=== PATIENT | male | born 1970 | race Caucasian/White ===

== ENCOUNTER 2018-08-06 10:01 | Inpatient (IN) | payer BC ==
[2018-08-06 10:32] VITALS: BMI 30.4
--- NOTE | 2018-08-06 12:03 | HP ---
COWS - Scale Resting Pulse: 1= [place] 81-100 Sweatin=Flushed/Facial Moisture Restless Observation: 0= Sits Still Pupil Size: 0= Normal to Room Light Bone or Joint Aches: 2= Severe Diffuse Aches Runny Nose/ Eye Tearin= Runny Nose/Eyes GI Upset > 30mins: 1= Stomach Cramp Tremor Observation: 2= Slight Tremor Visible Yawning Observation: 1= 1-2x During Session Anxiety or Irritability: 1=Feels Anxious/Irritable Goose Flesh Skin: 0=Smooth Skin COWS Score: 12 CIWA Score - CIWA Score Nausea/Vomitin-Mild Nausea/No Vomiting Muscle Tremors: 2 Anxiety: 2 Agitation: 0-Normal Activity Paroxysmal Sweats: 2 Orientation: 2-Disoriented Date<2 days Tacttile Disturbances: 0-None Auditory Disturbances: 0-None Visual Disturbances: 0-None Headache: 3-Moderate CIWA-Ar Total Score: 12 Admission [facility] - HPI Chief Complaint: ETOH/HEROIN WITHDRAWAL SYMPTOMS. Allergies/Adverse Reactions: Allergies Allergy/AdvReac Type Severity Reaction Status Date / Time No Known Allergies Allergy Verified 08/06/18 10:42 History of Present Illness: PATIENT PRESENTS WITH ETOH/HEROIN WITHDRAWAL SYMPTOMS. PATIENT STARTED DRINKING AT AGE 15 AND DRINKS 40 OUNCES OF BEER 6 TIMES A DAY. LAST DRINK THIS MORNING. STARTED SNIFFING COCAINE AT AGE 22 AND HEROIN AT AGE 26. LONGEST PERIOD OF SOBRIETY 7 YEARS. LAST TIME HE USED HEROIN AND COCAINE WAS LAST NIGHT. SNIFFS UP TO 300 DOLLARS DAILY. DENIES HX OF SEIZURES AND OVERDOSE. FIRST TIME ADMISSION TO [facility]. PMH INCLUDES DEPRESSION, HYPOTHYROIDSIM AND BIPOLAR DISORDER. DENIES SI/HI AND SUICIDE ATTEMPTS. Exam Limitations: No Limitations - Ebola screening Have you traveled outside of the country in the last 21 days: No Have you had contact with anyone from an Ebola affected area: No Have you been sick,other than usual withdrawal symptoms: No Do you have a fever: No - Review of Systems Constitutional: Chills, Night Sweats, Changes in sleep, Unintentional Wgt. Loss EENT: reports: Tearing, Nose Congestion Respiratory: reports: No Symptoms reported Cardiac: reports: No Symptoms Reported GI: reports: Nausea, Poor Fluid Intake, Abdominal cramping : reports: No Symptoms Reported Musculoskeletal: reports: Back Pain, Joint Pain, Muscle Pain Neuro: reports: Headache, Tremors Endocrine: reports: Unexplained Weight Loss Hematology: reports: No Symptoms Reported Psychiatric: reports: Anxious, Depressed Patient History - Patient Medical History Hx Anemia: No Hx Asthma: No Hx Chronic Obstructive Pulmonary Disease (COPD): No Hx Cancer: No Hx Cardiac Disorders: No Hx Congestive Heart Failure: No Hx Hypertension: No Hx Hypercholesterolemia: No Hx Pacemaker: No HX Cerebrovascular Accident: No Hx Seizures: No Hx Dementia: No Hx Diabetes: No Hx Gastrointestinal Disorders: No Hx Liver Disease: No Hx Genitourinary Disorders: No Hx Sexually Transmitted Disorders: No Hx Renal Disease (ESRD): No Hx Thyroid Disease: Yes Hx Human Immunodeficiency Virus (HIV): No Hx Hepatitis C: No Hx Depression: Yes Hx Suicide Attempt: No Hx Bipolar Disorder: No Hx Schizophrenia: No - Patient Surgical History Past Surgical History: No Hx Neurologic Surgery: No Hx Cataract Extraction: No Hx Cardiac Surgery: No Hx Lung Surgery: No Hx Breast Surgery: No Hx Breast Biopsy: No Hx Abdominal Surgery: No Hx Appendectomy: No Hx Cholecystectomy: No Hx Genitourinary Surgery: No Hx Orthopedic Surgery: No Anesthesia Reaction: No - PPD History Previous Implant?: Yes Documented Results: Negative w/o proof Implanted On Prior [facility] Admission?: No PPD to be Administered?: Yes - Smoking Cessation Smoking history: Never smoked Have you smoked in the past 12 months: No Hx Chewing Tobacco Use: No Initiated information on smoking cessation: No - Substance & Tx. History Hx Alcohol Use: Yes Hx Substance Use: Yes Substance Use Type: Alcohol, Cocaine, Heroin Hx Substance Use Treatment: No - Substances Abused Heroin Route: Inhalation Frequency: Daily Amount used: 2 bags Age of first use: 26 Date of Last Use: 08/05/18 Crack Route: Smoking Frequency: Daily Amount used: $300 Age of first use: 31 Date of Last Use: 08/05/18 Alcohol-beer Route: Oral Frequency: Daily Amount used: 6 (40 oz.0 Age of first use: 15 Date of Last Use: 08/06/18 Family Disease History - Family Disease History Family Disease History: Other: Father (SUBSTANCE ABUSE) Admission Physical Exam [facility] - Vital Signs Vital Signs: Vital Signs - 24 hr 08/06/18 10:29 Temperature 97.1 F L Pulse Rate 83 Respiratory 18 Rate Blood Pressure 121/82 - Physical General Appearance: Yes: Appropriately Dressed, Disheveled, Intoxicated, Tremorous, Sweating, Anxious HEENTM: Yes: EOMI, Hearing grossly Normal, Normocephalic, Normal Voice, JULIA, Pharynx Normal Respiratory: Yes: Chest Non-Tender, Lungs Clear, Normal Breath Sounds, No Respiratory Distress, No Accessory Muscle Use Neck: Yes: No masses,lesions,Nodules, Supple Breast: Yes: Breast Exam Deferred Cardiology: Yes: Regular Rhythm, Regular Rate, S1, S2 Abdominal: Yes: Normal Bowel Sounds, Non Tender, Soft Genitourinary: Yes: Within Normal Limits Back: Yes: Muscle Spasm Musculoskeletal: Yes: full range of Motion, Gait Steady, Back pain, Muscle Pain Extremities: Yes: Normal Inspection, Normal Range of Motion, Non-Tender, Tremors Neurological: Yes: over hauler helper II-XII NML intact, Fully Oriented, Alert, Motor Strength 5/5, Normal Response, Depressed Affect Integumentary: Yes: Normal Color, Warm, Moist Lymphatic: Yes: Within Normal Limits - Diagnostic (1) Opioid dependence with withdrawal Current Visit: Yes Status: Acute (2) Alcohol dependence with uncomplicated withdrawal Current Visit: Yes Status: Acute (3) Crack cocaine use Current Visit: Yes Status: Chronic (4) Hypothyroidism Current Visit: Yes Status: Chronic Qualifiers: Hypothyroidism type: unspecified Qualified Code(s): E03.9 - Hypothyroidism , unspecified Cleared for Admission [facility] - Detox or Rehab [facility] Level of Care: Medically Managed Detox Regimen/Protocol: Methadone/Librium [facility] Breath Alcohol Content Breath Alcohol Content: 0.061 Urine Drug Screen - Results Drug Screen Negative: No Urine Drug Screen Results: MORRIS-Cocaine, OPI-Opiates
[2018-08-06] MEDS ORDERED: MAGNESIUM CITRATE 300 ML BOTTLE PO PRN (12:10)
[2018-08-06] MEDS ORDERED: guaiFENesin/D-METHORPHAN HB 10 ML UNIT-DOSE CUPS PO PRN (12:10)
[2018-08-06] MEDS ORDERED: P-EPHED 60MG/TRIPROLIDI 2.5MG TABLET PO PRN (12:10)
[2018-08-06] MEDS ORDERED: MENTHOL/PHENOL 1 EACH UD MM PRN (12:10)
[2018-08-06] MEDS ORDERED: MAG HYDROX/AL HYDROX/SIMETH 30 ML UNIT-DOSE CUP PO PRN (12:10)
[2018-08-06] MEDS ORDERED: MAGNESIUM HYDROX 2400MG/30ML ORAL SUSPENSION 30 ML CUP PO PRN (12:10)
[2018-08-06] MEDS ORDERED: ACETAMINOPHEN 325 MG TABLET (FP) PO PRN (12:10)
[2018-08-06] MEDS ORDERED: LOPERAMIDE HCL 2 MG CAPSULE PO PRN (12:10)
[2018-08-06] MEDS ORDERED: IBUPROFEN 400 MG TABLET (FP) PO PRN (12:10)
[2018-08-06] MEDS ORDERED: METHADONE HCL 10 MG TABLET (FOR DETOX USE ONLY) PO ONE ×2 (12:50→23:00)
[2018-08-06] MEDS: chlordiazePOXIDE HCL 25 MG CAPSULE PO PRN (14:34)
[2018-08-06 16:17] LABS: HEMATOCRIT 43.9 % (35.4-49); HEMOGLOBIN 14.5 GM/dL (11.7-16.9); MCH 28.8 pg (25.7-33.7); MEAN CELL VOLUME 87.3 fl (80-96); MEAN PLT VOLUME 8.9 fl (7.5-11.1); PLATELET COUNT 282 K/MM3 (134-434); RBC 5.03 M/mm3 (4.00-5.60); RDW 14.1 % (11.9-15.9); WHITE BLOOD COUNT 9.6 K/mm3 (4.0-10.0)
[2018-08-06 16:39] LABS: CHLORIDE 101 mmol/L (98-107); POTASSIUM 3.8 mmol/L (3.5-5.1); SODIUM 139 mmol/L (136-145)
--- NOTE | 2018-08-06 16:45 | EKG ---
Test Reason : Blood Pressure : / mmHG Vent. Rate : 063 BPM Atrial Rate : 063 BPM P-R Int : 138 ms QRS Dur : 090 ms QT Int : 426 ms P-R-T Axes : 073 068 060 degrees QTc Int : 435 ms NORMAL SINUS RHYTHM WITH SINUS ARRHYTHMIA NORMAL ECG NO PREVIOUS ECGS AVAILABLE Confirmed by Dominik Townsend ([id number]) on 08/06/2018 4:44:41 PM Referred By: Confirmed By:Dominik Townsend
[2018-08-06 17:03] LABS: ALBUMIN 3.7 g/dl (3.4-5.0); ALK PHOS 80 U/L (45-117); ANION GAP 14 MMOL/L (8-16); BILIRUBIN,TOTAL 0.8 mg/dL (0.2-1); BLOOD UREA NITROGEN 9 mg/dL (7-18); CALCIUM 9.1 mg/dL (8.5-10.1); CO2 24 mmol/L (21-32); CREATININE 0.7 mg/dL (0.55-1.3); GLUCOSE,RANDOM 91 mg/dL (74-106); SGOT/AST 94 U/L (15-37); SGPT/ALT 76 U/L (13-61); TOT PROT 7.2 g/dl (6.4-8.2)
[2018-08-06] MEDS: chlordiazePOXIDE HCL 25 MG CAPSULE PO SCH ×2 (17:37→22:34)
--- NOTE | 2018-08-06 18:24 | CONSULT ---
[facility] Psychiatric Consult - Data Date of interview: 08/06/18 Admission source: [facility] Identifying data: First admission to [facility] for this 47 y/o male self-referredforf detoxification treatment (crack/cocaine,heroin,alcohol dependence).Admitted to [address] [place] [address].Patient is ,a father of two,domiciled and currently employed. Substance Abuse History: Confirmed by the patient in this interview.Details in current [facility] report : Smoking history: Never smoked. Have you smoked in the past 12 months: No. Hx Chewing Tobacco Use: No. Initiated information on smoking cessation: No. - Substance & Tx. History. Hx Alcohol Use: Yes. Hx Substance Use: Yes. Substance Use Type: Alcohol, Cocaine, Heroin. Hx Substance Use Treatment: No. - Substances Abused. Heroin. Route: Inhalation. Frequency: Daily. Amount used: 2 bags. Age of first use: 26. Date of Last Use: 08/05/18. Crack. Route: Smoking. Frequency: Daily. Amount used: $300. Age of first use: 31. Date of Last Use: 08/05/18. Alcohol-beer. Route: Oral. Frequency: Daily. Amount used: 6 (40 oz.0. Age of first use: 15. Date of Last Use: 08/06/18 Medical History: Hypothyroidism. Psychiatric History: Patient admits to a distant history of two psychiatric hospitalizations at facilities in [facility].More than 15 years ago.Diagnosed with Bipolar Disorder.Maintained on a regimen of lamotrigine 100 mg po bid + trazodone 50 mg po hs + sertraline 200 mg po daily + liothyronine 25 mcg po tid.Confirmed by pharmacy claims of 07/23/18 at [facility] # [id number].Patient sees Dr Adamson in [facility] for medication management.Mr Bernardo denies history of suicide attempts. Physical/Sexual Abuse/Trauma History: Patient denies. Additional Comment: Urine Drug Screen Results: MORRIS-Cocaine, OPI-Opiates.Noted. Mental Status Exam - Mental Status Exam Alert and Oriented to: Time, Place, Person Cognitive Function: Good Patient Appearance: Unkempt, Disheveled (unshaven) Mood: Nervous, Anxious Affect: Mood Congruent, Constricted Patient Behavior: Fatigued, Appropriate, Cooperative Speech Pattern: Clear, Appropriate Voice Loudness: Normal Thought Process: Goal Oriented Thought Disorder: Not Present Hallucinations: Denies Suicidal Ideation: Denies Homicidal Ideation: Denies Insight/Judgement: Fair Sleep: Poorly, Difficulty falling asleep Appetite: Good Muscle strength/Tone: Normal Gait/Station: Normal Psychiatric Findings - Problem List ([place] 1, 2,3) (1) Alcohol dependence with uncomplicated withdrawal Current Visit: Yes Status: Acute (2) Opioid dependence with withdrawal Current Visit: Yes Status: Acute (3) Cocaine dependence Current Visit: Yes Status: Acute (4) Substance induced mood disorder Current Visit: Yes Status: Acute (5) Insomnia Current Visit: Yes Status: Acute (6) Bipolar disorder Current Visit: Yes Status: Acute - Initial Treatment Plan Initial Treatment Plan: Psychoeducation.Sleep hygiene.Detoxification in progress.Medications resumed as : zoloft 200 mg po daily + lamotrigine 100 mg po bid + trazodone 50 mg po hs.Confirmed by current pharmacy claims (07/23/18) .Side effects/benefits of each drug are discussed with the patient.Mr Bernardo is made aware of the risk of Quiros Victor Hugo,priapism,suicidal ideation and sexual dysfunction (in particular).Endorses good response / no history of adverse effects.Patient reports that he last took his medications two days ago.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
[2018-08-06 18:57] LABS: URINE APPEARANCE CLEAR; URINE BILIRUBIN NEGATIVE (<2.0 mg/dL); URINE COLOR YELLOW; URINE GLUCOSE (UA) NEGATIVE (NEGATIVE); URINE KETONE NEGATIVE (NEGATIVE); URINE LEUK ESTERASE NEGATIVE (NEGATIVE); URINE NITRITE NEGATIVE (NEGATIVE); URINE PROTEIN NEGATIVE (NEGATIVE); URINE UROBILINOGEN NEGATIVE mg/dL (0.2-1.0)
[2018-08-06] MEDS ORDERED: MELATONIN 5 MG TABLETS PO PRN (22:00)
[2018-08-06] MEDS: lamoTRIgine 100 MG TABLET (FP) PO SCH (22:33)
[2018-08-06] MEDS: THIAMINE HCL 100 MG TABLET (FP) PO SCH (22:33)
[2018-08-06] MEDS: traZODone HCL 50 MG TABLET (FP) PO SCH (22:33)
[2018-08-07] MEDS: chlordiazePOXIDE HCL 25 MG CAPSULE PO SCH ×4 (05:42→22:15)
[2018-08-07] MEDS ORDERED: METHADONE HCL 10 MG TABLET (FOR DETOX USE ONLY) PO SCH (10:00)
[2018-08-07] MEDS: SERTRALINE HCL 50 MG TABLET (FP) PO SCH (10:41)
[2018-08-07] MEDS: lamoTRIgine 100 MG TABLET (FP) PO SCH ×2 (10:41→22:15)
[2018-08-07] MEDS: PRENATAL VITAMINS W/ FOLIC ACID TABLET (FP) PO SCH (10:41)
[2018-08-07] MEDS: chlordiazePOXIDE HCL 25 MG CAPSULE PO PRN (14:24)
[2018-08-07] MEDS: traZODone HCL 50 MG TABLET (FP) PO SCH (22:15)
[2018-08-07] MEDS: THIAMINE HCL 100 MG TABLET (FP) PO SCH (22:17)
[2018-08-08] MEDS: chlordiazePOXIDE HCL 25 MG CAPSULE PO SCH ×2 (05:31→10:08)
[2018-08-08] MEDS: METHADONE HCL 5 MG TABLET (FOR DETOX USE ONLY) PO SCH (10:08)
[2018-08-08] MEDS: lamoTRIgine 100 MG TABLET (FP) PO SCH ×2 (10:08→22:28)
[2018-08-08] MEDS: SERTRALINE HCL 50 MG TABLET (FP) PO SCH (10:08)
[2018-08-08] MEDS: PRENATAL VITAMINS W/ FOLIC ACID TABLET (FP) PO SCH (10:09)
[2018-08-08] MEDS: chlordiazePOXIDE HCL 25 MG CAPSULE PO PRN (14:35)
--- NOTE | 2018-08-08 14:41 | PN ---
[facility] CIWA - CIWA Score Nausea/Vomitin-No Nausea/No Vomiting Muscle Tremors: None Anxiety: 2 Paroxysmal Sweats: 1-Minimal Palms Moist Orientation: 0-Oriented Tacttile Disturbances: 0-None Auditory Disturbances: 0-None Visual Disturbances: 0-None Headache: 0-None Present S COWS - Scale Resting Pulse: 0= [place] 80 or Below Sweatin= Chills/Flushing Restless Observation: 0= Sits Still Pupil Size: 0= Normal to Room Light Bone or Joint Aches: 0= None Runny Nose/ Eye Tearin= None GI Upset > 30mins: 0= None Tremor Observation of Outstretched Hands: 0= None Yawning Observation: 0= None Anxiety or Irritability: 2=Irritable/Anxious Goose Flesh Skin: 0=Smooth Skin COWS Score: 3 [facility] Progress Note (SOAP) Subjective: Patient presents with mild chills and flushed skin. Also states he feels mildly anxious. Objective: 08/08/18 14:39 Laboratory Tests 08/06/18 08/06/18 08/06/18 12:20 12:20 12:20 WBC 9.6 RBC 5.03 Hgb 14.5 Hct 43.9 MCV 87.3 MCH 28.8 MCHC 33.0 RDW 14.1 Plt Count 282 MPV 8.9 Sodium 139 Potassium 3.8 Chloride 101 Carbon Dioxide 24 Anion Gap 14 BUN 9 Creatinine 0.7 Creat Clearance w eGFR > 60 Random Glucose 91 Calcium 9.1 Total Bilirubin 0.8 AST 94 H ALT 76 H Alkaline Phosphatase 80 Total Protein 7.2 Albumin 3.7 TSH 0.58 Urine Color Urine Appearance Urine pH Ur Specific [place] Urine Protein Urine Glucose (UA) Urine Ketones Urine Blood Urine Nitrite Urine Bilirubin Urine Urobilinogen Ur Leukocyte Esterase RPR Titer HIV 1&2 Antibody Screen Negative HIV P24 Antigen Negative 08/06/18 08/06/18 12:20 17:30 WBC RBC Hgb Hct MCV MCH MCHC RDW Plt Count MPV Sodium Potassium Chloride Carbon Dioxide Anion Gap BUN Creatinine Creat Clearance w eGFR Random Glucose Calcium Total Bilirubin AST ALT Alkaline Phosphatase Total Protein Albumin TSH Urine Color Yellow Urine Appearance Clear Urine pH 5.0 Ur Specific [place] 1.015 Urine Protein Negative Urine Glucose (UA) Negative Urine Ketones Negative Urine Blood Negative Urine Nitrite Negative Urine Bilirubin Negative Urine Urobilinogen Negative Ur Leukocyte Esterase Negative RPR Titer Nonreactive HIV 1&2 Antibody Screen HIV P24 Antigen Vital Signs Temperature 96.8 F L 08/08/18 09:24 Pulse Rate 67 08/08/18 09:24 Respiratory Rate 18 08/08/18 09:24 Blood Pressure 109/65 08/08/18 09:24 O2 Sat by Pulse Oximetry (%) pe: skin warm, mildly flushed, moist alert and oriented x 3 car s1s2 resp cta bl Assessment: 08/08/18 14:40 withdrawal syndrome Plan: continue detox as per protocol encourage oral fluids continue to monitor clinically
--- NOTE | 2018-08-08 14:47 | PN ---
[facility] CIWA - CIWA Score Nausea/Vomitin-No Nausea/No Vomiting Muscle Tremors: 1-None Visible, but [place] Anxiety: 2 Agitation: 0-Normal Activity Paroxysmal Sweats: 1-Minimal Palms Moist Orientation: 0-Oriented Tacttile Disturbances: 0-None Auditory Disturbances: 0-None Visual Disturbances: 0-None Headache: 2-Mild CIWA-Ar Total Score: 6 [facility] COWS - Scale Resting Pulse: 0= [place] 80 or Below Sweatin= Chills/Flushing Restless Observation: 0= Sits Still Pupil Size: 0= Normal to Room Light Bone or Joint Aches: 2= Severe Diffuse Aches Runny Nose/ Eye Tearin= None GI Upset > 30mins: 0= None Tremor Observation of Outstretched Hands: 1= Tremor [place], Not Seen Yawning Observation: 0= None Anxiety or Irritability: 2=Irritable/Anxious Goose Flesh Skin: 0=Smooth Skin COWS Score: 6 S Progress Note (SOAP) Subjective: Patient presents with headache, anxiety and mild tremors. Objective: 08/08/18 14:44 Laboratory Tests 08/06/18 08/06/18 08/06/18 12:20 12:20 12:20 WBC 9.6 RBC 5.03 Hgb 14.5 Hct 43.9 MCV 87.3 MCH 28.8 MCHC 33.0 RDW 14.1 Plt Count 282 MPV 8.9 Sodium 139 Potassium 3.8 Chloride 101 Carbon Dioxide 24 Anion Gap 14 BUN 9 Creatinine 0.7 Creat Clearance w eGFR > 60 Random Glucose 91 Calcium 9.1 Total Bilirubin 0.8 AST 94 H ALT 76 H Alkaline Phosphatase 80 Total Protein 7.2 Albumin 3.7 TSH 0.58 Urine Color Urine Appearance Urine pH Ur Specific [place] Urine Protein Urine Glucose (UA) Urine Ketones Urine Blood Urine Nitrite Urine Bilirubin Urine Urobilinogen Ur Leukocyte Esterase RPR Titer HIV 1&2 Antibody Screen Negative HIV P24 Antigen Negative 08/06/18 08/06/18 12:20 17:30 WBC RBC Hgb Hct MCV MCH MCHC RDW Plt Count MPV Sodium Potassium Chloride Carbon Dioxide Anion Gap BUN Creatinine Creat Clearance w eGFR Random Glucose Calcium Total Bilirubin AST ALT Alkaline Phosphatase Total Protein Albumin TSH Urine Color Yellow Urine Appearance Clear Urine pH 5.0 Ur Specific [place] 1.015 Urine Protein Negative Urine Glucose (UA) Negative Urine Ketones Negative Urine Blood Negative Urine Nitrite Negative Urine Bilirubin Negative Urine Urobilinogen Negative Ur Leukocyte Esterase Negative RPR Titer Nonreactive HIV 1&2 Antibody Screen HIV P24 Antigen Last Vital Signs Vital Signs (72 hours) 08/06/18 08/06/18 08/06/18 10:29 14:37 18:13 Temperature 97.1 F L 97.9 F 97.9 F Pulse Rate 83 72 64 Respiratory 18 20 16 Rate Blood Pressure 121/82 130/81 103/60 08/07/18 08/07/18 08/07/18 03:30 06:51 09:27 Temperature 97.0 F L 97.0 F L Pulse Rate 62 56 L Respiratory 18 18 18 Rate Blood Pressure 101/60 112/65 08/07/18 08/07/18 08/07/18 14:08 18:00 20:50 Temperature 97.7 F 97.7 F 97.7 F Pulse Rate 66 77 77 Respiratory 18 20 20 Rate Blood Pressure 121/74 133/86 133/86 08/07/18 08/08/18 08/08/18 21:22 00:30 03:30 Temperature 98.1 F Pulse Rate 66 Respiratory 18 18 18 Rate Blood Pressure 129/83 08/08/18 08/08/18 08/08/18 06:12 06:30 09:24 Temperature 97.8 F 96.8 F L Pulse Rate 62 67 Respiratory 18 18 18 Rate Blood Pressure 122/68 109/65 Temp Pulse Resp BP Pulse Ox 96.8 F L 67 18 109/65 08/08/18 09:24 08/08/18 09:24 08/08/18 09:24 08/08/18 09:24 PE: alert and oriented skin moist and flushed car s1s2 resp cta bl gi soft bs + ext mild tremors psych anxious about sobriety Assessment: 08/08/18 14:47 withdrawal syndrome Plan: continue detox as per protocol encourage oral fluids continue to monitor clinically.
[2018-08-08] MEDS: chlordiazePOXIDE 5 MG CAPSULE PO SCH ×2 (17:59→22:28)
[2018-08-08] MEDS: traZODone HCL 50 MG TABLET (FP) PO SCH (22:28)
[2018-08-08] MEDS: THIAMINE HCL 100 MG TABLET (FP) PO SCH (22:28)
[2018-08-09] MEDS: chlordiazePOXIDE 5 MG CAPSULE PO SCH ×2 (05:31→10:17)
[2018-08-09] MEDS: METHADONE HCL 5 MG TABLET (FOR DETOX USE ONLY) PO SCH (10:17)
[2018-08-09] MEDS: SERTRALINE HCL 50 MG TABLET (FP) PO SCH (10:17)
[2018-08-09] MEDS: lamoTRIgine 100 MG TABLET (FP) PO SCH ×2 (10:18→22:39)
[2018-08-09] MEDS: PRENATAL VITAMINS W/ FOLIC ACID TABLET (FP) PO SCH (10:18)
--- NOTE | 2018-08-09 13:24 | PN ---
[facility] Progress Note (SOAP) Subjective: C/O SWEATS, INTERMITTENT SLEEP. Objective: 08/09/18 13:23 Vital Signs 08/09/18 08/09/18 08/09/18 06:18 10:00 10:13 Temperature 97 F L 98.6 F 98.6 F Pulse Rate 65 75 75 Respiratory 18 18 18 Rate Blood Pressure 112/71 122/72 122/72 Laboratory Tests 08/06/18 08/06/18 08/06/18 12:20 12:20 12:20 WBC 9.6 RBC 5.03 Hgb 14.5 Hct 43.9 MCV 87.3 MCH 28.8 MCHC 33.0 RDW 14.1 Plt Count 282 MPV 8.9 Sodium 139 Potassium 3.8 Chloride 101 Carbon Dioxide 24 Anion Gap 14 BUN 9 Creatinine 0.7 Creat Clearance w eGFR > 60 Random Glucose 91 Calcium 9.1 Total Bilirubin 0.8 AST 94 H ALT 76 H Alkaline Phosphatase 80 Total Protein 7.2 Albumin 3.7 TSH 0.58 Urine Color Urine Appearance Urine pH Ur Specific [place] Urine Protein Urine Glucose (UA) Urine Ketones Urine Blood Urine Nitrite Urine Bilirubin Urine Urobilinogen Ur Leukocyte Esterase RPR Titer HIV 1&2 Antibody Screen Negative HIV P24 Antigen Negative 08/06/18 08/06/18 12:20 17:30 WBC RBC Hgb Hct MCV MCH MCHC RDW Plt Count MPV Sodium Potassium Chloride Carbon Dioxide Anion Gap BUN Creatinine Creat Clearance w eGFR Random Glucose Calcium Total Bilirubin AST ALT Alkaline Phosphatase Total Protein Albumin TSH Urine Color Yellow Urine Appearance Clear Urine pH 5.0 Ur Specific [place] 1.015 Urine Protein Negative Urine Glucose (UA) Negative Urine Ketones Negative Urine Blood Negative Urine Nitrite Negative Urine Bilirubin Negative Urine Urobilinogen Negative Ur Leukocyte Esterase Negative RPR Titer Nonreactive HIV 1&2 Antibody Screen HIV P24 Antigen Assessment: 08/09/18 13:23 WITHDRAWAL SX Plan: CONTINUE DETOX INCREASE PO FLUIDS
[2018-08-09] MEDS: hydrOXYzine PAMOATE 50 MG CAPSULE (FP) PO PRN ×2 (14:53→19:25)
[2018-08-09] MEDS: chlordiazePOXIDE HCL 10 MG CAPSULE PO SCH ×2 (16:48→22:39)
[2018-08-09] MEDS: traZODone HCL 50 MG TABLET (FP) PO SCH (22:39)
[2018-08-09] MEDS: THIAMINE HCL 100 MG TABLET (FP) PO SCH (22:39)
[2018-08-10] MEDS: chlordiazePOXIDE HCL 10 MG CAPSULE PO SCH ×2 (05:24→10:44)
[2018-08-10] MEDS ORDERED: METHADONE HCL 10 MG TABLET (FOR DETOX USE ONLY) PO SCH (10:00)
--- NOTE | 2018-08-10 10:40 | PN ---
[facility] Progress Note (SOAP) Subjective: C/O SLIGHT ANXIETY, SWEATS. DETOX TAPER PROCEEDING WELL. Objective: 08/10/18 10:39 Vital Signs 08/10/18 08/10/18 08/10/18 03:30 06:01 06:30 Temperature 96.4 F L Pulse Rate 67 Respiratory 18 18 18 Rate Blood Pressure 126/76 08/10/18 09:16 Temperature 98.9 F Pulse Rate 76 Respiratory 18 Rate Blood Pressure 138/72 Laboratory Tests 08/06/18 08/06/18 08/06/18 12:20 12:20 12:20 WBC 9.6 RBC 5.03 Hgb 14.5 Hct 43.9 MCV 87.3 MCH 28.8 MCHC 33.0 RDW 14.1 Plt Count 282 MPV 8.9 Sodium 139 Potassium 3.8 Chloride 101 Carbon Dioxide 24 Anion Gap 14 BUN 9 Creatinine 0.7 Creat Clearance w eGFR > 60 Random Glucose 91 Calcium 9.1 Total Bilirubin 0.8 AST 94 H ALT 76 H Alkaline Phosphatase 80 Total Protein 7.2 Albumin 3.7 TSH 0.58 Urine Color Urine Appearance Urine pH Ur Specific [place] Urine Protein Urine Glucose (UA) Urine Ketones Urine Blood Urine Nitrite Urine Bilirubin Urine Urobilinogen Ur Leukocyte Esterase RPR Titer HIV 1&2 Antibody Screen Negative HIV P24 Antigen Negative 08/06/18 08/06/18 12:20 17:30 WBC RBC Hgb Hct MCV MCH MCHC RDW Plt Count MPV Sodium Potassium Chloride Carbon Dioxide Anion Gap BUN Creatinine Creat Clearance w eGFR Random Glucose Calcium Total Bilirubin AST ALT Alkaline Phosphatase Total Protein Albumin TSH Urine Color Yellow Urine Appearance Clear Urine pH 5.0 Ur Specific [place] 1.015 Urine Protein Negative Urine Glucose (UA) Negative Urine Ketones Negative Urine Blood Negative Urine Nitrite Negative Urine Bilirubin Negative Urine Urobilinogen Negative Ur Leukocyte Esterase Negative RPR Titer Nonreactive HIV 1&2 Antibody Screen HIV P24 Antigen Assessment: 08/10/18 10:40 WITHDRAWAL SX Plan: CONTINUE DETOX
[2018-08-10] MEDS: PRENATAL VITAMINS W/ FOLIC ACID TABLET (FP) PO SCH (10:43)
[2018-08-10] MEDS: SERTRALINE HCL 50 MG TABLET (FP) PO SCH (10:44)
[2018-08-10] MEDS: lamoTRIgine 100 MG TABLET (FP) PO SCH ×2 (10:45→22:01)
[2018-08-10] MEDS: hydrOXYzine PAMOATE 50 MG CAPSULE (FP) PO PRN ×3 (10:46→19:08)
[2018-08-10] MEDS: traZODone HCL 50 MG TABLET (FP) PO SCH (22:01)
[2018-08-10] MEDS: THIAMINE HCL 100 MG TABLET (FP) PO SCH (22:01)
[2018-08-11] MEDS ORDERED: METHADONE HCL 5 MG TABLET (FOR DETOX USE ONLY) PO SCH (06:00)
[2018-08-11] MEDS: hydrOXYzine PAMOATE 50 MG CAPSULE (FP) PO PRN (08:32)
[2018-08-11 09:27] VITALS: BP 101/53; PULSE 66; TEMP 97.5
[2018-08-11] MEDS: PRENATAL VITAMINS W/ FOLIC ACID TABLET (FP) PO SCH (10:27)
[2018-08-11] MEDS: SERTRALINE HCL 50 MG TABLET (FP) PO SCH (10:27)
[2018-08-11] MEDS: lamoTRIgine 100 MG TABLET (FP) PO SCH (10:27)
--- NOTE | 2018-08-11 11:10 | DS ---
[facility] Detox Discharge Summary Admission Date: 08/06/18 Discharge Date: 08/11/18 - History Present History: Alcohol Dependence, Cocaine Dependence, Opioid Dependence Additional Comments: Patient is for discharge today. Has scheduled miner pick at 12pm to take him to rehab facility in [place]. Patient denies any complaints. Pertinent Past History: Hypothyroidism - Physical Exam Results Vital Signs: Vital Signs Temperature 97.5 F L 08/11/18 09:26 Pulse Rate 66 08/11/18 09:26 Respiratory Rate 18 08/11/18 09:26 Blood Pressure 101/53 L 08/11/18 09:26 O2 Sat by Pulse Oximetry (%) Pertinent Admission Physical Exam Findings: Withdrawal symptoms Laboratory Tests 08/06/18 08/06/18 08/06/18 12:20 12:20 12:20 WBC 9.6 RBC 5.03 Hgb 14.5 Hct 43.9 MCV 87.3 MCH 28.8 MCHC 33.0 RDW 14.1 Plt Count 282 MPV 8.9 Sodium 139 Potassium 3.8 Chloride 101 Carbon Dioxide 24 Anion Gap 14 BUN 9 Creatinine 0.7 Creat Clearance w eGFR > 60 Random Glucose 91 Calcium 9.1 Total Bilirubin 0.8 AST 94 H ALT 76 H Alkaline Phosphatase 80 Total Protein 7.2 Albumin 3.7 TSH 0.58 Urine Color Urine Appearance Urine pH Ur Specific [place] Urine Protein Urine Glucose (UA) Urine Ketones Urine Blood Urine Nitrite Urine Bilirubin Urine Urobilinogen Ur Leukocyte Esterase RPR Titer HIV 1&2 Antibody Screen Negative HIV P24 Antigen Negative 08/06/18 08/06/18 12:20 17:30 WBC RBC Hgb Hct MCV MCH MCHC RDW Plt Count MPV Sodium Potassium Chloride Carbon Dioxide Anion Gap BUN Creatinine Creat Clearance w eGFR Random Glucose Calcium Total Bilirubin AST ALT Alkaline Phosphatase Total Protein Albumin TSH Urine Color Yellow Urine Appearance Clear Urine pH 5.0 Ur Specific [place] 1.015 Urine Protein Negative Urine Glucose (UA) Negative Urine Ketones Negative Urine Blood Negative Urine Nitrite Negative Urine Bilirubin Negative Urine Urobilinogen Negative Ur Leukocyte Esterase Negative RPR Titer Nonreactive HIV 1&2 Antibody Screen HIV P24 Antigen Labs reviewed - Treatment Hospital Course: Detox Protocol Followed, Detoxed Safely, Responded well, Discharged Condition Good, Rehab Referral Accepted - Medication Discharge Medications: Ambulatory Orders Lamotrigine [Lamictal -] 100 mg PO BID 08/04/18 Liothyronine Sodium 25 mcg PO TID 08/04/18 Sertraline HCl 200 mg PO DAILY 08/04/18 traZODone HCL [Desyrel -] 50 mg PO HS 08/04/18 - Diagnosis (1) Alcohol dependence with uncomplicated withdrawal Current Visit: Yes Status: Acute (2) Bipolar disorder Current Visit: Yes Status: Chronic (3) Cocaine dependence Current Visit: Yes Status: Chronic (4) Insomnia Current Visit: Yes Status: Acute Qualifiers: Insomnia type: unspecified Qualified Code(s): G47.00 - Insomnia, unspecified (5) Opioid dependence with withdrawal Current Visit: Yes Status: Acute (6) Substance induced mood disorder Current Visit: Yes Status: Acute (7) Hypothyroidism Current Visit: Yes Status: Chronic Qualifiers: Hypothyroidism type: unspecified Qualified Code(s): E03.9 - Hypothyroidism , unspecified - AMA Did Patient Leave Against Medical Advice: No (F/U with your PCP after completing rehab at facility in [place])
== END 2018-08-11 11:33 | disposition home or self-care (01) | DRG 897 ==
LOC: YASAS 10:01 → Y3N 12:41
PROC: HZ2ZZZZ Detoxification Services for Substance Abuse Treatment (ICD-10-PCS; principal; 2018-08-06)
DX: F11.23 Opioid dependence with withdrawal (principal); F14.20 Cocaine dependence, uncomplicated; F10.230 Alcohol dependence with withdrawal, uncomplicated; F19.24 Other psychoactive substance dependence with psychoactive substance-induced mood disorder; F31.9 Bipolar disorder, unspecified; G47.00 Insomnia, unspecified; E03.9 Hypothyroidism, unspecified
CPT/HCPCS: 36415; 80053; 81003; 84443; 85027; 86593; 87389; 93005; 93010